=== PATIENT | male | born 1935 | race Caucasian/White ===

== ENCOUNTER 2017-10-31 12:21 | Observation (INO) | payer OTHER ==
[~2017-10-31] VITALS: Ht 175.3 cm; Wt 59.7 kg
[~2017-10-31 12:21] MED LIST: ADULT LOW DOSE81 M1 PO; Aspirin E.C. PO; Aspirin PO; Augmentin PO; Cardizem CD,Cartia X PO; DIGOX250 MCG PO; DILTIAZEM HCL360 MG PO; HYDROCODON-ACE1 EAC7 PO; K-Dur PO; KEFLEX500 MG PO; LASIX40 MG PO; LISINOPRIL2.5 MG PO; LOPRESSOR100 M1 PO; Lanoxin,Digitek PO; Lasix PO; Lopressor PO; NOHOMEMEDS; PLAVIX75 MG PO; PRAVACHOL40 MG PO; PRINIVIL5 MG PO; Plavix PO; Pravachol PO; Symbicort 160-4.5 mc IH; Tylenol Regular Stre PO; Xarelto PO; Zestril,Prinivil PO
[2017-10-31 13:05] LABS: BASOPHIL (%) 0.4 % (0-1); EOSINOPHIL (%) 1.3 % (0-5); EOSINOPHIL COUNT 0.1 K/uL (0-0.3); HEMATOCRIT 50.9 % (38.0-50.0); IMMATURE GRANULOCYTE (%) 0.3 % (0.0-0.7); LYMPHOCYTE (%) 18.3 % (15-42); LYMPHOCYTE COUNT 1.3 K/uL (1.0-2.8); MCH 33.8 PG (29.0-34.0); MCHC 33.4 G/DL (30.0-36.0); MCV 101.2 FL (86-99); MONOCYTE (%) 8.3 % (3-12); MONOCYTE COUNT 0.6 K/uL (0-0.8); NEUTROPHIL (%) 71.4 % (45-76); NEUTROPHIL COUNT 4.9 K/uL (1.8-6.4); PLATELET COUNT 161 K/uL (156-360); RBC DIS.WIDTH-CV 13.3 % (11.8-14.6); RBC DIS.WIDTH-SD 50.4 % (39-53); RED BLOOD COUNT 5.03 M/uL (4.00-5.50); WHITE BLOOD COUNT 6.8 K/uL (4.1-10.2)
[2017-10-31 13:13] LABS: PTT 27.3 SEC (25-37)
[2017-10-31 13:16] LABS: CHLORIDE 96 mEq/L (99-109); POTASSIUM 4.5 mEq/L (3.7-5.4); SODIUM 137 mEq/L (136-147)
[2017-10-31 13:18] LABS: GLUCOSE 49 mg/dL (70-99)
[2017-10-31 13:21] LABS: CREATININE 1.1 mg/dL (0.6-1.3); GFR ESTIMATE (CALCULATED) > 59 mL/min/ (58.99-99999)
[2017-10-31 13:22] LABS: UREA NITROGEN (BUN) 21 mg/dL (9-23)
[2017-10-31 13:26] LABS: TROP-I INTERPRETATION NEGATIVE; TROPONIN-I 0.07 ng/mL (0.0-0.30)
[2017-10-31 13:31] LABS: DIGOXIN 1.2 ng/mL (0.8-2.0)
[2017-10-31] MEDS ORDERED: ENTRESTO 24 MG1 EACH PO (14:48)
[2017-10-31] MEDS ORDERED: METOLAZONE2.5 MG PO (14:50)
[2017-10-31 17:00] VITALS: BP 92/68
[2017-10-31 19:00] VITALS: BP 105/62
[2017-10-31 23:01] VITALS: BP 122/64
[2017-11-01 01:23] LABS: TROP-I INTERPRETATION NEGATIVE; TROPONIN-I 0.09 ng/mL (0.0-0.30)
[2017-11-01 07:29] VITALS: BP 108/59
[2017-11-01 08:46] LABS: TROP-I INTERPRETATION NEGATIVE; TROPONIN-I 0.09 ng/mL (0.0-0.30)
[2017-11-01 09:18] LABS: CHLORIDE 91 MEQ/L (99-109); CREATININE 1.3 MG/DL (0.6-1.3); GFR ESTIMATE (CALCULATED) 56 mL/min/ (58.99-99999); POTASSIUM 4.5 MEQ/L (3.7-5.4); SODIUM 135 MEQ/L (136-147); UREA NITROGEN (BUN) 22 mg/dL (9-23)
[2017-11-01 09:21] LABS: GLUCOSE 97 mg/dL (70-99)
[2017-11-01 11:28] VITALS: BP 77/50
[2017-11-01] MEDS ORDERED: DOCUSATE SODIU100 MG PO (12:36)
== END 2017-11-01 13:57 | disposition home or self-care (01) ==
LOC: EME 12:21 → 5WEST 14:24 → EDOF 14:24 → ENRESERV 14:28 → EDOF 14:41 → 5WEST 16:42
PROVIDERS: Emergency Medicine; Family Medicine; Internal Medicine; Internal Medicine Cardiovascular Disease
DX: I11.0 Hypertensive heart disease with heart failure (principal); I50.9 Heart failure, unspecified; I48.1 Persistent atrial fibrillation; I48.2 Chronic atrial fibrillation; E87.6 Hypokalemia; M19.90 Unspecified osteoarthritis, unspecified site; I42.9 Cardiomyopathy, unspecified; I27.20 Pulmonary hypertension, unspecified; Z79.82 Long term (current) use of aspirin
CPT/HCPCS: 71045; 80048; 80162; 82948; 83880; 84484; 85025; 85610; 85730; 87502; 93005; 93306; 99281; 99285; G0378; J1650; J1940

== ENCOUNTER 2018-04-17 20:04 | Inpatient (IN) | payer OTHER ==
[~2018-04-17] VITALS: Ht 175.3 cm; Wt 68.2 kg
[~2018-04-17 20:04] MED LIST changes: +DOCUSATE SODIU100 MG PO; +ENTRESTO 24 MG1 EACH PO; +METOLAZONE2.5 MG PO
[2018-04-17 20:42] LABS: CHLORIDE 99 mEq/L (99-109); HEMATOCRIT 45.5 % (38.0-50.0); HEMOGLOBIN 15.5 G/DL (12.5-16.6); MCH 34.1 PG (29.0-34.0); MCHC 34.1 G/DL (30.0-36.0); PLATELET COUNT 178 K/uL (156-360); POTASSIUM 4.5 mEq/L (3.7-5.4); RBC DIS.WIDTH-CV 13.5 % (11.8-14.6); RBC DIS.WIDTH-SD 50.3 % (39-53); RED BLOOD COUNT 4.55 M/uL (4.00-5.50); SODIUM 139 mEq/L (136-147); WHITE BLOOD COUNT 7.4 K/uL (4.1-10.2)
[2018-04-17 20:43] LABS: GLUCOSE 95 mg/dL (70-99)
[2018-04-17 20:47] LABS: CREATININE 1.3 mg/dL (0.6-1.3); GFR ESTIMATE (CALCULATED) 56 mL/min/ (58.99-99999)
[2018-04-17 20:48] LABS: UREA NITROGEN (BUN) 43 mg/dL (9-23)
[2018-04-17 21:57] LABS: TROP-I INTERPRETATION INDETERMINATE; TROPONIN-I 0.48 ng/mL (0.0-0.30)
[2018-04-17] MEDS ORDERED: COLACE100 MG PO (22:26)
[2018-04-17] MEDS ORDERED: BUMETANIDE1 MG PO (22:27)
[2018-04-17 23:10] LABS: INTER. NORMALIZED RATIO 1.1
[2018-04-17 23:18] LABS: PTT 28.7 SEC (25-37)
[2018-04-17 23:45] VITALS: BP 119/76
[2018-04-18 04:20] VITALS: BP 100/57
[2018-04-18 05:55] LABS: HEMATOCRIT 41.5 % (38.0-50.0); HEMOGLOBIN 13.8 G/DL (12.5-16.6); MCH 33.6 PG (29.0-34.0); MCHC 33.3 G/DL (30.0-36.0); PLATELET COUNT 165 K/uL (156-360); RBC DIS.WIDTH-CV 13.5 % (11.8-14.6); RBC DIS.WIDTH-SD 50.2 % (39-53); RED BLOOD COUNT 4.11 M/uL (4.00-5.50); WHITE BLOOD COUNT 7.9 K/uL (4.1-10.2)
[2018-04-18 06:20] LABS: ALBUMIN 3.5 G/DL (3.2-4.8); ALKALINE PHOSPHATASE 92 IU/L (3-129); ALT (GPT) 20 IU/L (3-49); AST (GOT) 27 IU/L (2-34); CHLORIDE 99 MEQ/L (99-109); CREATININE 1.2 MG/DL (0.6-1.3); GFR ESTIMATE (CALCULATED) > 59 mL/min/ (58.99-99999); GLUCOSE 93 mg/dL (70-99); POTASSIUM 4.1 MEQ/L (3.7-5.4); SODIUM 138 MEQ/L (136-147); TOTAL BILIRUBIN 1.1 MG/DL (0.0-1.0); TOTAL PROTEIN 5.2 G/DL (6.4-8.3); UREA NITROGEN (BUN) 43 mg/dL (9-23)
[2018-04-18 06:26] LABS: TROP-I INTERPRETATION INDETERMINATE; TROPONIN-I 0.47 ng/mL (0.0-0.30)
[2018-04-18 06:59] LABS: DIGOXIN 1.7 ng/mL (0.8-2.0)
[2018-04-18 07:03] VITALS: BP 117/57
[2018-04-18 11:06] VITALS: BP 116/58
[2018-04-18 12:44] LABS: TROP-I INTERPRETATION INDETERMINATE; TROPONIN-I 0.33 ng/mL (0.0-0.30)
[2018-04-18 13:24] VITALS: BP 172/76
[2018-04-18 15:41] VITALS: BP 108/56
[2018-04-18 20:25] VITALS: BP 79/62
[2018-04-18 22:45] LABS: TROP-I INTERPRETATION NEGATIVE; TROPONIN-I 0.29 ng/mL (0.0-0.30)
[2018-04-19] VITALS (7 sets, daily range): BP systolic 72–103; BP diastolic 42–67
[2018-04-20 04:00] VITALS: BP 107/52
[2018-04-20 06:17] LABS: BASOPHIL (%) 0.2 % (0-1); EOSINOPHIL (%) 0 % (0-5); HEMATOCRIT 45.1 % (38.0-50.0); HEMOGLOBIN 14.7 G/DL (12.5-16.6); IMMATURE GRANULOCYTE (%) 0.7 % (0.0-0.7); LYMPHOCYTE COUNT 0.5 K/uL (1.0-2.8); MCH 32.7 PG (29.0-34.0); MCHC 32.6 G/DL (30.0-36.0); MCV 100.4 FL (86-99); MONOCYTE (%) 1.2 % (3-12); MONOCYTE COUNT 0.1 K/uL (0-0.8); NEUTROPHIL (%) 84.9 % (45-76); NEUTROPHIL COUNT 3.5 K/uL (1.8-6.4); PLATELET COUNT 159 K/uL (156-360); RBC DIS.WIDTH-CV 13.3 % (11.8-14.6); RBC DIS.WIDTH-SD 49.9 % (39-53); RED BLOOD COUNT 4.49 M/uL (4.00-5.50); WHITE BLOOD COUNT 4.1 K/uL (4.1-10.2)
[2018-04-20 06:53] LABS: CHLORIDE 100 MEQ/L (99-109); CREATININE 1.3 MG/DL (0.6-1.3); GFR ESTIMATE (CALCULATED) 56 mL/min/ (58.99-99999); POTASSIUM 4.8 MEQ/L (3.7-5.4); SODIUM 137 MEQ/L (136-147); UREA NITROGEN (BUN) 35 mg/dL (9-23)
[2018-04-20 07:01] LABS: GLUCOSE 179 mg/dL (70-99)
[2018-04-20 07:25] VITALS: BP 102/77
[2018-04-20 11:30] VITALS: BP 110/76
[2018-04-20 15:02] VITALS: BP 103/54
[2018-04-20 19:16] VITALS: BP 99/57
[2018-04-21] VITALS (7 sets, daily range): BP systolic 83–101; BP diastolic 52–64
[2018-04-22] VITALS (10 sets, daily range): BP systolic 44–123; BP diastolic 31–87
[2018-04-22 16:17] LABS: DEVICE NC; SITE LR; TOTAL RESP RATE 25 resp/min
[2018-04-22 16:18] LABS: BASE EXCESS -2.9 mEq/L (-3 to +3); BICARBONATE 17.9 mEq/L (22-26); CARBOXY HGB 1.4 % (0-5); METHEMOGLOBIN 1.1 % (0-1.5); O2 SATURATION (CALCULATED) 96.3 % (95-99); PCO2 23 mm Hg (35-45); PO2 137 mm Hg (80-100); pH 7.5 (7.35-7.45)
[2018-04-22 17:46] LABS: BASOPHIL (%) 0.1 % (0-1); EOSINOPHIL (%) 0 % (0-5); HEMATOCRIT 50.3 % (38.0-50.0); HEMOGLOBIN 16.5 G/DL (12.5-16.6); IMMATURE GRANULOCYTE (%) 0.7 % (0.0-0.7); LYMPHOCYTE (%) 7.4 % (15-42); LYMPHOCYTE COUNT 1.1 K/uL (1.0-2.8); MCH 33.3 PG (29.0-34.0); MCHC 32.8 G/DL (30.0-36.0); MCV 101.6 FL (86-99); MONOCYTE (%) 5.4 % (3-12); MONOCYTE COUNT 0.8 K/uL (0-0.8); NEUTROPHIL (%) 86.4 % (45-76); NEUTROPHIL COUNT 12.4 K/uL (1.8-6.4); PLATELET COUNT 200 K/uL (156-360); RBC DIS.WIDTH-CV 13.8 % (11.8-14.6); RBC DIS.WIDTH-SD 52.7 % (39-53); RED BLOOD COUNT 4.95 M/uL (4.00-5.50); WHITE BLOOD COUNT 14.3 K/uL (4.1-10.2)
[2018-04-22 18:00] LABS: CHLORIDE 95 MEQ/L (99-109); CREATININE 1.9 MG/DL (0.6-1.3); GFR ESTIMATE (CALCULATED) 36 mL/min/ (58.99-99999); GLUCOSE 148 mg/dL (70-99); SODIUM 132 MEQ/L (136-147); UREA NITROGEN (BUN) 54 mg/dL (9-23)
[2018-04-22 18:02] LABS: POTASSIUM 6.5 MEQ/L (3.7-5.4)
[2018-04-22 22:01] LABS: PCO2 19 mm Hg (35-45); PO2 133 mm Hg (80-100); pH 7.33 (7.35-7.45)
[2018-04-22 22:02] LABS: BASE EXCESS -13.1 mEq/L (-3 to +3); CARBOXY HGB 1.6 % (0-5); COMMENTS - BLOOD GASES C+; DEVICE NC; METHEMOGLOBIN 0.8 % (0-1.5); O2 FLOW 2 L/MIN; O2 SATURATION (CALCULATED) 99.1 % (95-99); SITE A-LINE; TOTAL RESP RATE 20 resp/min
[2018-04-22 23:48] LABS: BASOPHIL (%) 0.1 % (0-1); EOSINOPHIL (%) 0 % (0-5); HEMATOCRIT 43.9 % (38.0-50.0); HEMOGLOBIN 14.7 G/DL (12.5-16.6); IMMATURE GRANULOCYTE (%) 0.9 % (0.0-0.7); LYMPHOCYTE (%) 4.9 % (15-42); LYMPHOCYTE COUNT 0.7 K/uL (1.0-2.8); MCHC 33.5 G/DL (30.0-36.0); MCV 101.6 FL (86-99); MONOCYTE (%) 5.8 % (3-12); MONOCYTE COUNT 0.8 K/uL (0-0.8); NEUTROPHIL (%) 88.3 % (45-76); NEUTROPHIL COUNT 11.8 K/uL (1.8-6.4); PLATELET COUNT 158 K/uL (156-360); RBC DIS.WIDTH-CV 13.7 % (11.8-14.6); RED BLOOD COUNT 4.32 M/uL (4.00-5.50); WHITE BLOOD COUNT 13.4 K/uL (4.1-10.2)
[2018-04-23] VITALS (15 sets, daily range): BP systolic 81–116; BP diastolic 49–67
[2018-04-23 00:01] LABS: PTT 28.9 SEC (25-37)
[2018-04-23 00:19] LABS: INTER. NORMALIZED RATIO 2.8
[2018-04-23 00:22] LABS: CHLORIDE 98 mEq/L (99-109); POTASSIUM 5.8 mEq/L (3.7-5.4); SODIUM 133 mEq/L (136-147)
[2018-04-23 00:23] LABS: MAGNESIUM 2.6 mg/dL (1.3-2.7)
[2018-04-23 00:26] LABS: GLUCOSE 327 mg/dL (70-99)
[2018-04-23 00:28] LABS: GFR ESTIMATE (CALCULATED) 28 mL/min/ (58.99-99999); PHOSPHORUS 7.7 mg/dL (2.5-4.9); TROP-I INTERPRETATION NEGATIVE; TROPONIN-I 0.18 ng/mL (0.0-0.30)
[2018-04-23 00:29] LABS: UREA NITROGEN (BUN) 54 mg/dL (9-23)
[2018-04-23 00:30] LABS: CREATINE KINASE 52 IU/L (1-294); CREATININE 2.4 mg/dL (0.6-1.3); TOTAL CK 52 IU/L (1-294)
[2018-04-23 00:38] LABS: CK-MB 3.8 ng/mL (0.0-4.9); CKMB RELATIVE INDEX 7.3 (0.0-3.9)
[2018-04-23 00:47] LABS: DIGOXIN 1.2 ng/mL (0.8-2.0)
[2018-04-23 02:56] LABS: HEMATOCRIT 41.2 % (38.0-50.0); HEMOGLOBIN 14.1 G/DL (12.5-16.6); MCH 33.8 PG (29.0-34.0); MCHC 34.2 G/DL (30.0-36.0); MCV 98.8 FL (86-99); PLATELET COUNT 150 K/uL (156-360); RBC DIS.WIDTH-CV 13.6 % (11.8-14.6); RBC DIS.WIDTH-SD 50.2 % (39-53); RED BLOOD COUNT 4.17 M/uL (4.00-5.50); WHITE BLOOD COUNT 14.8 K/uL (4.1-10.2)
[2018-04-23 03:43] LABS: TROP-I INTERPRETATION NEGATIVE; TROPONIN-I 0.19 ng/mL (0.0-0.30)
[2018-04-23 03:49] LABS: CHLORIDE 100 mEq/L (99-109); POTASSIUM 5.2 mEq/L (3.7-5.4); SODIUM 134 mEq/L (136-147)
[2018-04-23 03:53] LABS: GLUCOSE 106 mg/dL (70-99)
[2018-04-23 03:55] LABS: CREATININE 2.2 mg/dL (0.6-1.3); GFR ESTIMATE (CALCULATED) 31 mL/min/ (58.99-99999)
[2018-04-23 03:56] LABS: UREA NITROGEN (BUN) 57 mg/dL (9-23)
[2018-04-23 09:26] LABS: CARBOXY HGB 1.9 % (0-5); COMMENTS - BLOOD GASES C+; DEVICE NC; METHEMOGLOBIN 1.1 % (0-1.5); O2 FLOW 2 L/MIN; O2 SATURATION (CALCULATED) 96.3 % (95-99); PCO2 32 mm Hg (35-45); PO2 121 mm Hg (80-100); SITE ALINE; TOTAL RESP RATE 24 resp/min; pH 7.46 (7.35-7.45)
[2018-04-23 09:27] LABS: BASE EXCESS -0.2 mEq/L (-3 to +3); BICARBONATE 22.8 mEq/L (22-26)
[2018-04-23 11:00] LABS: HEMATOCRIT 39.2 % (38.0-50.0); HEMOGLOBIN 13.2 G/DL (12.5-16.6); MCV 98.7 FL (86-99)
[2018-04-23 11:55] LABS: CHLORIDE 98 MEQ/L (99-109); CREATININE 2.2 MG/DL (0.6-1.3); GFR ESTIMATE (CALCULATED) 31 mL/min/ (58.99-99999); POTASSIUM 5.5 MEQ/L (3.7-5.4); SODIUM 133 MEQ/L (136-147); UREA NITROGEN (BUN) 64 mg/dL (9-23)
[2018-04-23 12:01] LABS: GLUCOSE 161 mg/dL (70-99)
[2018-04-23 12:18] LABS: TROP-I INTERPRETATION NEGATIVE; TROPONIN-I 0.23 ng/mL (0.0-0.30)
[2018-04-23 18:17] LABS: HEMATOCRIT 41.1 % (38.0-50.0); HEMOGLOBIN 13.8 G/DL (12.5-16.6); MCV 99.3 FL (86-99)
[2018-04-23 18:20] LABS: TROP-I INTERPRETATION NEGATIVE
[2018-04-23 20:26] LABS: ALBUMIN 3.1 G/DL (3.2-4.8); CHLORIDE 95 MEQ/L (99-109); CREATININE 2.4 MG/DL (0.6-1.3); GFR ESTIMATE (CALCULATED) 28 mL/min/ (58.99-99999); GLUCOSE 121 mg/dL (70-99); PHOSPHORUS 5.5 mg/dL (2.5-4.9); POTASSIUM 4.9 MEQ/L (3.7-5.4); SODIUM 137 MEQ/L (136-147); UREA NITROGEN (BUN) 62 mg/dL (9-23)
[2018-04-24 00:02] VITALS: BP 102/70
[2018-04-24 00:47] LABS: HEMATOCRIT 40.4 % (38.0-50.0); HEMOGLOBIN 14.1 G/DL (12.5-16.6); MCV 96.4 FL (86-99)
[2018-04-24 01:09] LABS: TROP-I INTERPRETATION NEGATIVE; TROPONIN-I 0.17 ng/mL (0.0-0.30)
[2018-04-24 04:01] VITALS: BP 88/62
[2018-04-24 05:12] LABS: HEMATOCRIT 39.3 % (38.0-50.0); HEMOGLOBIN 13.3 G/DL (12.5-16.6); MCV 96.8 FL (86-99)
[2018-04-24 05:47] LABS: ALBUMIN 2.7 G/DL (3.2-4.8); CHLORIDE 98 MEQ/L (99-109); CREATININE 2.2 MG/DL (0.6-1.3); GFR ESTIMATE (CALCULATED) 31 mL/min/ (58.99-99999); GLUCOSE 132 mg/dL (70-99); PHOSPHORUS 5.4 mg/dL (2.5-4.9); POTASSIUM 4.3 MEQ/L (3.7-5.4); SODIUM 136 MEQ/L (136-147); UREA NITROGEN (BUN) 61 mg/dL (9-23)
[2018-04-24 08:00] VITALS: BP 98/68
[2018-04-24 10:04] VITALS: BP 87/54
[2018-04-24 11:00] VITALS: BP 99/54
[2018-04-25] VITALS (8 sets, daily range): BP systolic 84–106; BP diastolic 53–66
[2018-04-25 06:31] LABS: ALBUMIN 2.8 G/DL (3.2-4.8); CHLORIDE 97 MEQ/L (99-109); CREATININE 1.8 MG/DL (0.6-1.3); GFR ESTIMATE (CALCULATED) 39 mL/min/ (58.99-99999); GLUCOSE 109 mg/dL (70-99); POTASSIUM 4.2 MEQ/L (3.7-5.4); SODIUM 137 MEQ/L (136-147); UREA NITROGEN (BUN) 55 mg/dL (9-23)
[2018-04-26] VITALS (8 sets, daily range): BP systolic 88–146; BP diastolic 50–67
[2018-04-26 06:06] LABS: CHLORIDE 96 MEQ/L (99-109); CREATININE 1.6 MG/DL (0.6-1.3); GFR ESTIMATE (CALCULATED) 44 mL/min/ (58.99-99999); GLUCOSE 114 mg/dL (70-99); MAGNESIUM 2.1 mg/dl (1.3-2.7); PHOSPHORUS 3.3 mg/dL (2.5-4.9); POTASSIUM 4.1 MEQ/L (3.7-5.4); SODIUM 136 MEQ/L (136-147); UREA NITROGEN (BUN) 52 mg/dL (9-23)
[2018-04-26 07:12] LABS: URIC ACID 6.9 mg/dL (3.1-9.2)
[2018-04-27] VITALS (7 sets, daily range): BP systolic 78–105; BP diastolic 48–62
[2018-04-27 05:39] LABS: BASOPHIL (%) 0.1 % (0-1); EOSINOPHIL (%) 0.9 % (0-5); EOSINOPHIL COUNT 0.1 K/uL (0-0.3); HEMATOCRIT 47.1 % (38.0-50.0); HEMOGLOBIN 15.2 G/DL (12.5-16.6); IMMATURE GRANULOCYTE (%) 0.5 % (0.0-0.7); LYMPHOCYTE (%) 9.8 % (15-42); LYMPHOCYTE COUNT 1.1 K/uL (1.0-2.8); MCH 32.3 PG (29.0-34.0); MCHC 32.3 G/DL (30.0-36.0); MONOCYTE (%) 9.1 % (3-12); NEUTROPHIL (%) 79.6 % (45-76); NEUTROPHIL COUNT 8.8 K/uL (1.8-6.4); PLATELET COUNT 142 K/uL (156-360); RBC DIS.WIDTH-CV 13.5 % (11.8-14.6); RED BLOOD COUNT 4.71 M/uL (4.00-5.50)
[2018-04-27 05:58] LABS: CHLORIDE 96 MEQ/L (99-109); CREATININE 1.4 MG/DL (0.6-1.3); GFR ESTIMATE (CALCULATED) 52 mL/min/ (58.99-99999); GLUCOSE 124 mg/dL (70-99); POTASSIUM 4.6 MEQ/L (3.7-5.4); SODIUM 133 MEQ/L (136-147); UREA NITROGEN (BUN) 44 mg/dL (9-23)
[2018-04-27 06:30] LABS: ALBUMIN 3.1 G/DL (3.2-4.8); CHLORIDE 96 MEQ/L (99-109); CREATININE 1.4 MG/DL (0.6-1.3); GFR ESTIMATE (CALCULATED) 52 mL/min/ (58.99-99999); GLUCOSE 122 mg/dL (70-99); PHOSPHORUS 2.5 mg/dL (2.5-4.9); POTASSIUM 4.2 MEQ/L (3.7-5.4); SODIUM 135 MEQ/L (136-147); UREA NITROGEN (BUN) 43 mg/dL (9-23)
[2018-04-28] VITALS (7 sets, daily range): BP systolic 82–96; BP diastolic 48–68
[2018-04-28 01:59] LABS: STOOL OCCULT BLD 1ST SPECIMEN POSITIVE
[2018-04-28 06:03] LABS: ALBUMIN 3.3 G/DL (3.2-4.8); CHLORIDE 96 MEQ/L (99-109); CREATININE 1.7 MG/DL (0.6-1.3); GFR ESTIMATE (CALCULATED) 41 mL/min/ (58.99-99999); GLUCOSE 143 mg/dL (70-99); POTASSIUM 4.6 MEQ/L (3.7-5.4); SODIUM 134 MEQ/L (136-147); UREA NITROGEN (BUN) 51 mg/dL (9-23); URIC ACID 6.9 mg/dL (3.1-9.2)
[2018-04-28 06:06] LABS: PHOSPHORUS 5.2 mg/dL (2.5-4.9)
[2018-04-28 15:14] LABS: HEMATOCRIT 45.7 % (38.0-50.0); HEMOGLOBIN 15.1 G/DL (12.5-16.6); MCH 32.9 PG (29.0-34.0); MCV 99.6 FL (86-99); NRBC (%) 0.2 /100 WBC (0-0); PLATELET COUNT 140 K/uL (156-360); RBC DIS.WIDTH-CV 13.9 % (11.8-14.6); RBC DIS.WIDTH-SD 51.5 % (39-53); RED BLOOD COUNT 4.59 M/uL (4.00-5.50)
[2018-04-28 21:31] LABS: COMMENTS - BLOOD GASES C+A+; DEVICE NC; O2 FLOW 4 L/MIN; SITE RR; pH 7.38 (7.35-7.45)
[2018-04-28 21:32] LABS: BASE EXCESS -6.4 mEq/L (-3 to +3); BICARBONATE 17.2 mEq/L (22-26); CARBOXY HGB 1.5 % (0-5); METHEMOGLOBIN 1 % (0-1.5); PCO2 29 mm Hg (35-45); PO2 132 mm Hg (80-100)
[2018-04-29 03:16] VITALS: BP 80/54
[2018-04-29 05:35] LABS: HEMATOCRIT 48.2 % (38.0-50.0); HEMOGLOBIN 15.6 G/DL (12.5-16.6); MCH 32.6 PG (29.0-34.0); MCHC 32.4 G/DL (30.0-36.0); MCV 100.6 FL (86-99); NRBC (%) 0.3 /100 WBC (0-0); PLATELET COUNT 141 K/uL (156-360); RED BLOOD COUNT 4.79 M/uL (4.00-5.50); WHITE BLOOD COUNT 12.3 K/uL (4.1-10.2)
[2018-04-29 05:50] LABS: ALBUMIN 3.6 G/DL (3.2-4.8); CHLORIDE 93 MEQ/L (99-109); CREATININE 2.7 MG/DL (0.6-1.3); GFR ESTIMATE (CALCULATED) 24 mL/min/ (58.99-99999); GLUCOSE 121 mg/dL (70-99); MAGNESIUM 2.4 mg/dl (1.3-2.7); PHOSPHORUS 6.2 mg/dL (2.5-4.9); POTASSIUM 5.2 MEQ/L (3.7-5.4); SODIUM 129 MEQ/L (136-147); UREA NITROGEN (BUN) 69 mg/dL (9-23)
[2018-04-29 12:34] VITALS: BP 82/58
[2018-04-29 16:28] VITALS: BP 84/58
== END 2018-04-29 22:43 ==
LOC: EME 20:04 → 4EAST 22:59 → EDOF 22:59 → 4WEST 22:59 → 4EAST 23:29 → ENRESERV 04-22 20:25 → 4WEST 04-22 21:07 → ENRESERV 04-25 16:28 → 4EAST 04-25 18:10
PROVIDERS: Emergency Medicine; Hospitalist; Internal Medicine; Internal Medicine Cardiovascular Disease; Internal Medicine Nephrology; Surgery
PROC: 04HY32Z Insertion of Monitoring Device into Lower Artery, Percutaneous Approach (ICD-10-PCS; principal; 2018-04-24)
DX: I21.4 Non-ST elevation (NSTEMI) myocardial infarction (principal); I48.2 Chronic atrial fibrillation; I13.0 Hypertensive heart and chronic kidney disease with heart failure and stage 1 through stage 4 chronic kidney disease, or unspecified chronic kidney disease; I42.9 Cardiomyopathy, unspecified; I47.2 Ventricular tachycardia; R23.0 Cyanosis; I08.3 Combined rheumatic disorders of mitral, aortic and tricuspid valves; N17.9 Acute kidney failure, unspecified; E86.0 Dehydration; E87.2 Acidosis; E87.5 Hyperkalemia; E16.2 Hypoglycemia, unspecified; E83.39 Other disorders of phosphorus metabolism; I50.23 Acute on chronic systolic (congestive) heart failure; Z66 Do not resuscitate; Z51.5 Encounter for palliative care; N18.3 Chronic kidney disease, stage 3 (moderate); J44.1 Chronic obstructive pulmonary disease with (acute) exacerbation; I47.1 Supraventricular tachycardia; T38.0X5A Adverse effect of glucocorticoids and synthetic analogues, initial encounter; D72.829 Elevated white blood cell count, unspecified
CPT/HCPCS: 36600; 71045; 71046; 76770; 80048; 80048 91; 80053; 80069; 80162; 81003; 82272; 82330; 82550; 82553; 82570; 82948; 83735; 83880; 84100; 84132 91; 84145 90; 84156; 84484; 84550; 85014; 85018; 85025; 85025 91; 85027; 85610; 85730; 87040; 87086; 87641; 93005; 93306; 94640; 94799; 97530 GO; 97530 GP; 99281; 99285; A6214; C1751; C9113; J1815; J1940; J2405; J2543; J2765; J2930; J7030; J7040; J7050; J7070; J7512